=== PATIENT | female | born 1990 | race Caucasian/White ===

== ENCOUNTER → 2016-07-02 | Outpatient (CLI) | payer BC ==
[~2016-07-02] MED LIST: DIAMOX SEQUE500 MG PO; IRON65 PO; MONONESSA 28 T1 EACH PO; NORCO 5-325 TA1 EACH PO; PROBIOTIC1 EAC2 PO; ZOFRAN8 MG PO
[2016-07-02 17:31] LABS: BASOPHIL % 0.5 %; EOSINOPHIL # 0.1 K/uL (0.0-0.5); EOSINOPHIL % 1.4 %; HEMATOCRIT 40.4 % (33.0-46.0); HEMOGLOBIN 12.9 g/dL (11.0-15.0); IMMATURE GRANULOCYTE % 0.1 %; LYMPHOCYTE % 27.7 %; MCH 29.8 pg (27.0-34.0); MCHC 31.9 gm/dL (32.0-36.5); MCV 93.3 fl (83.0-98.0); MONOCYTE # 0.5 K/uL (0.0-1.0); MONOCYTE % 6.7 %; MPV 10.1 fl (9.4-12.4); NEUTROPHIL # (ANC) 4.6 K/uL (1.8-7.8); NEUTROPHIL % 63.6 %; NRBC % 0 /100WBC (0-0.00); PLATELET COUNT 234 K/uL (150-450); RBC 4.33 M/uL (3.50-5.00); RDW-CV 12.9 % (11.9-14.6); WBC 7.3 K/uL (4.0-11.0)
[2016-07-02 17:44] LABS: ANION GAP 10.2 (10.0-19.0); BLOOD UREA NITROGEN 13 mg/dL (6-24); CALCIUM 8.9 mg/dL (8.5-10.5); CHLORIDE 104 mMol/L (96-110); CO2 29 mMol/L (22-32); CREATININE 0.9 mg/dL (0.5-1.1); ESTIMATED GFR (MDRD EQUATION) > 60; POTASSIUM 4.2 mMol/L (3.7-5.1); SODIUM 139 mMol/L (135-145)
== END ==
LOC: LNHI 17:14
PROVIDERS: Surgery Vascular Surgery
DX: I86.8 Varicose veins of other specified sites (principal); Z01.818 Encounter for other preprocedural examination

== ENCOUNTER 2016-07-26 05:27 | Day surgery (SDC) | payer BC ==
[~2016-07-26] VITALS: Ht 177.8 cm; Wt 56.2 kg
--- NOTE | ~2016-07-26 | OR ---
PATIENT'S NAME: INDIRA BERRY [facility] AGE: 26 Y [address] ROOM: [place] [address] LOCATION: [facility] [place] ADMIT DATE: 07/26/2016 OR/Procedure Report DISCHARGE DATE: 07/26/2016 FAMILY PHYSICIAN: Eliot Hurley MD ATTENDING PHYSICIAN: Reed Sarah SURGEON: Reed Sarah MD REGIONAL ACCOUNT EXECUTIVE: DATE OF PROCEDURE: 07/26/2016 PREOPERATIVE DIAGNOSIS: Right arm varicose vein. POSTOPERATIVE DIAGNOSIS: Right arm varicose vein. PROCEDURE: Ligation and removal of right arm varicose veins. SHIP BOSS: LUCIAN Garcia. ANESTHESIA: General. ESTIMATED BLOOD LOSS: 10 mL. OPERATIVE FINDINGS: Lots of inflamed tissue around varicosed vein. Entire vein removed in multiple segments. DESCRIPTION OF PROCEDURE: The patient was brought to the operating room, placed supine on the operative table, prepped and draped in a sterile manner. Preoperative time-out was performed. The patient received preoperative antibiotics. We made a 2-cm incision on the chest wall, just below the distal end of clavicle, dissected down, identified the large varicose vein as it was diving deep towards what was likely the axillary vein. We placed 2 medium clips and then transected it. We then performed 4 separate stab phlebectomies along the upper arm to remove the vein in segments. We held pressure at each site for hemostasis. We then reapproximated the skin with interrupted 4-0 Monocryl buried stitches, and then we placed Dermabond the site. The arm was then wrapped for compression and pain relief. The patient tolerated the procedure well, awoken in the operating room, transferred to recovery room and then home later that day. REED SARAH MD FKM/modl PATIENT'S NAME: INDIRA BERRY [facility] AGE: 26 Y [address] ROOM: [place] [address] LOCATION: [facility] [place] ADMIT DATE: 07/26/2016 OR/Procedure Report DISCHARGE DATE: 07/26/2016 FAMILY PHYSICIAN: Eliot Hurley MD ATTENDING PHYSICIAN: Reed Sarah /[id number] d: 07/26/16 2324 t: 07/27/16 1001, OPERATIVE SUMMARY
[~2016-07-26 05:27] MED LIST changes: -DIAMOX SEQUE500 MG PO; -NORCO 5-325 TA1 EACH PO
[2016-07-26] MEDS ORDERED: DIAMOX SEQUE500 MG PO (06:35)
[2016-07-26] MEDS ORDERED: NORCO 5-325 TA1 EACH PO (08:50)
== END 2016-07-26 10:45 | disposition disaster alternative care site (69) ==
LOC: GSDC 05:27 → GPOC 05:30 → GSDC 10:45
PROC: 05L70ZZ Occlusion of Right Axillary Vein, Open Approach (ICD-10-PCS; principal; 2016-07-26)
PROC: 05B Upper Veins, Excision (ICD-10-PCS; 2016-07-26)
DX: I86.8 Varicose veins of other specified sites (principal); Z79.899 Other long term (current) drug therapy
CPT/HCPCS: J0690; J1100; J2250; J2405; J3010; J7120